=== PATIENT | female | born 1995 | race Hispanic/Latino ===

== ENCOUNTER 2016-05-17 08:14 | Emergency (ER) | payer MEDICAID ==
[2016-05-17] MEDS ORDERED: KETOROLAC 60 MG/2 ML VIAL IM ONE (09:27)
== END 2016-05-17 10:14 | disposition home or self-care (01) ==
LOC: ER 08:14
DX: R07.89 Other chest pain (principal)
CPT/HCPCS: 71020; 93005; 96372